=== PATIENT | female | born 1955 | race Caucasian/White ===

== ENCOUNTER → 2017-10-24 | Outpatient (CLI) | payer BC ==
[~2017-10-24] MED LIST: BUDE10.2 IH; DOCU100C37 PO; IBUP-1780 PO; OXYC-471 PO; RT-ALBUINH IH
--- NOTE | 2017-10-24 16:30 | Diagnostic Imaging Report ---
EXAMINATION: PA and lateral chest at 2:41 p.m. INDICATION: COPD, preop hysterectomy. COMPARISON: There are no prior studies available for comparison. FINDINGS: The heart size is within normal limits. There is a band of increased density near the apex of the heart. I suspect this finding is secondary to scar formation as opposed to pneumonia/atelectasis. If previous exams are available, they would be helpful for comparison. The lungs are generally clear otherwise. There is no sign of failure, pneumonia, or pleural effusion to indicate an acute abnormality. The mediastinum is not widened. The osseous structures are intact. IMPRESSION: 1. The poorly defined band of increased density near the apex of the heart is more likely due to scar formation than to an acute abnormality. Clinical followup is recommended. If previous studies are available, they would be helpful for comparison. 2. There is no acute cardiopulmonary abnormality noted. Dictated by: Dictated on workstation # [id number]
== END ==
LOC: RAD 14:09
PROVIDERS: ATTEND Nurse Practitioner Family
DX: Z01.811 Encounter for preprocedural respiratory examination (principal); J44.9 Chronic obstructive pulmonary disease, unspecified
CPT/HCPCS: 71046

== ENCOUNTER 2017-11-08 12:00 | Outpatient (CLI) | payer BC ==
[~2017-11-08] VITALS: Ht 170.2 cm; Wt 86.3 kg
[2017-11-08] MEDS ORDERED: RT-ALBUINH IH (12:11)
[2017-11-08] MEDS ORDERED: BUDE10.2 IH (12:11)
[2017-11-08 12:24] VITALS: BP 118/72
[2017-11-08 13:01] LABS: BASOPHILS # (AUTO) 0.1 10^3/uL (0.0-0.1); BASOPHILS % (AUTO) 1 % (0-10); EOSINOPHILS # (AUTO) 0.5 10^3/uL (0.0-0.3); EOSINOPHILS % (AUTO) 6 % (0-10); HEMATOCRIT 40 % (35-52); LYMPHOCYTES # (AUTO) 1.8 X 10^3 (1.0-4.0); LYMPHOCYTES % (AUTO) 22 % (12-44); MEAN CORPUSCULAR HEMOGLOBIN 30 PG (25-34); MEAN CORPUSCULAR HGB CONC 33 G/DL (32-36); MEAN CORPUSCULAR VOLUME 90 FL (80-99); MEAN PLATELET VOLUME 9.8 FL (7.4-10.4); MONOCYTES # (AUTO) 0.9 X 10^3 (0.0-1.0); MONOCYTES % (AUTO) 11 % (0-12); NEUTROPHILS % (AUTO) 60 % (42-75); PLATELET COUNT 394 10^3/uL (130-400); RED BLOOD COUNT 4.37 10^6/uL (4.35-5.85); RED CELL DISTRIBUTION WIDTH 14.6 % (10.0-14.5); WHITE BLOOD COUNT 8.3 10^3/uL (4.3-11.0)
== END 2017-11-08 13:10 | disposition home or self-care (01) ==
LOC: EDBD → PREOP 12:00
PROVIDERS: ATTEND Obstetrics & Gynecology
DX: Z01.812 Encounter for preprocedural laboratory examination (principal); Z11.2 Encounter for screening for other bacterial diseases; R32 Unspecified urinary incontinence
CPT/HCPCS: 36415; 85025; 86850; 86900; 86901; 87081

== ENCOUNTER → 2017-11-08 | Outpatient (CLI) | payer BC ==
[~2017-11-08] MED LIST changes: +RT-ALBUTEROL SULF 2.5 MG/3 ML PRE-MIX VIAL INH ONE; +RT-ALBUTEROL SULF 2.5 MG/3 ML PRE-MIX VIAL ONE
== END ==
LOC: EDBD 11-01 13:00 → RT 11:45
PROVIDERS: ATTEND Nurse Practitioner Family
DX: J44.9 Chronic obstructive pulmonary disease, unspecified (principal)
CPT/HCPCS: 94060; 94726; 94729

== ENCOUNTER 2017-11-17 10:10 | Day surgery (SDC) | payer BC ==
[~2017-11-17] VITALS: Ht 170.2 cm; Wt 86.3 kg
[~2017-11-17 10:10] MED LIST changes: -DOCU100C37 PO; -IBUP-1780 PO; -OXYC-471 PO; -RT-ALBUTEROL SULF 2.5 MG/3 ML PRE-MIX VIAL INH ONE; -RT-ALBUTEROL SULF 2.5 MG/3 ML PRE-MIX VIAL ONE
[2017-11-17 10:25] VITALS: BP 127/81
[2017-11-17] MEDS ORDERED: ceFAZolin INJECTION 1,000 MG in NS (IVPB) 50 ML IV ONE (10:30)
[2017-11-17] MEDS ORDERED: BUP/EPI 0.5% 1:200,000 (SENSORCAINE) 30 ML VIAL ONE (10:35)
[2017-11-17] MEDS ORDERED: ESTRADIOL VAGINAL CREAM 42.5 GM (ESTRACE) VG ONE (10:35)
[2017-11-17] MEDS: LACTATED RINGERS 1,000 ML IV PRN ×2 (11:40→15:54)
[2017-11-17] MEDS ORDERED: fentaNYL INJECTION 100 MCG/2 ML AMP ONE ×2 (12:35→15:06)
[2017-11-17] MEDS ORDERED: LIDOCAINE PF 2% 5 ML (XYLOCAINE) VIAL ONE (12:35)
[2017-11-17] MEDS ORDERED: MIDAZOLAM 2 MG/2 ML (VERSED) VIAL ONE (12:35)
[2017-11-17] MEDS ORDERED: ONDANSETRON 4 MG/2 ML (SDV) Z0FRAN ONE (12:35)
[2017-11-17] MEDS ORDERED: proPOfol 200 MG/20 ML (DIPRIVAN) VIAL IV ONE (12:35)
[2017-11-17] MEDS ORDERED: DEXAMETHASONE 10 MG/ML (DECADRON) 1 ML VIAL ONE (12:35)
[2017-11-17] MEDS ORDERED: ROCURONIUM 10 MG/ML 5 ML SYRINGE IV ONE ×2 (12:35→13:55)
--- NOTE | 2017-11-17 13:03 | Progress Note-Post Operative ---
Post-Operative Progess Note Surgeon (s)/Manager Collection (s) Surgeon QUIN DENIS MD Manager Collection: Franca Cunha Pre-Operative Diagnosis Uterovaginal prolapse and stress urinary incontinence Post-Operative Diagnosis Same with pathology pending Procedure & Operative Findings Date of Procedure 11/17/17 Procedure Performed/Findings TLH / BSO/anterior and posterior vaginal repairs with enterocele repair, laparoscopic adhesiolysis, (and pubovaginal sling and cystoscopy per Dr. Cross) Anesthesia Type GETA Estimated Blood Loss Estimated blood loss (mL): 200cc Specimens/Packing Specimens Removed Uterus fallopian tubes and ovaries Packing: Kerlix in the vagina QUIN DENIS MD Nov 17, 2017 13:03
--- NOTE | 2017-11-17 13:03 | Progress Note-Pre Operative ---
Pre-Operative Progress Note H&P Reviewed The H&P was reviewed, patient examined and no changes noted. Date Seen by Provider: Nov 17, 2017 Time Seen by Provider: 13:02 Date H&P Reviewed: Nov 17, 2017 Time H&P Reviewed: 13:02 Pre-Operative Diagnosis: Uterovaginal prolapse and stress urinary incontinence QUIN DENIS MD Nov 17, 2017 1:02 pm
[2017-11-17] MEDS ORDERED: IBUP-1780 PO (13:08)
[2017-11-17] MEDS ORDERED: OXYC-471 PO (13:08)
[2017-11-17] MEDS ORDERED: DOCU100C37 PO (13:08)
--- NOTE | 2017-11-17 13:09 | Discharge Instructions ---
Discharge Instructions Discharge Medications New, Converted or Re-Newed RX: RX on Chart Patient Instructions Patient Instructions: as directed Return to The Hospital For: As directed Activity & Diet Discharge Diet: No Restrictions Activity as Tolerated: No Orders-Post D/C & Referrals Follow Up Appt: Return to clinic on Monday, November 20, 2017 for staple removal Call to make follow up appt. for patient in 4 weeks. Activity: Rest for 24 hours, than as tolerated. Wound Care: May remove Band-Aid tomorrow. Replace as desired. Keep incisions clean and dry. Wash daily with soap and water. Please call in RX to patient pharmacy. Diet: As tolerated-Clear Liquids only if nauseated. May shower or tub bathe as desired. No driving for 24 hours, no alcoholic beverages for 24 hours, and nothing per vagina (no tampons, douching, or intercourse) for 8 weeks. Patient to return to the clinic as soon as possible for: Temperature greater than 101F, Severe Pain, Foul discharge from incision or vagina, Excessive Bleeding (more than a period). QUIN DENIS MD Nov 17, 2017 1:09 pm
[2017-11-17] MEDS ORDERED: KETOROLAC 30 MG/ML VIAL IVP SCH (13:15)
[2017-11-17] MEDS ORDERED: ONDANSETRON 4 MG/2 ML (SDV) Z0FRAN IVP PRN ×2 (13:15→15:45)
[2017-11-17] MEDS ORDERED: oxyCODONE/APAP 5/325MG (PERCOCET 5) TABLET PO PRN (13:15)
[2017-11-17] MEDS ORDERED: WATER (STERILE) FOR INJ 10 ML BTL INJ ONE (13:15)
[2017-11-17] MEDS ORDERED: ESTROGENS CONJ IV 25 MG/5 ML (PREMARIN) VIAL IVP ONE (13:15)
[2017-11-17] MEDS ORDERED: BENZOCAINE/MENTHOL (DERMOPLAST) 56 ML CAN TP PRN (13:15)
[2017-11-17] MEDS ORDERED: PROMETHAZINE INJ 25 MG/ML (PHENERGAN) AMP IM PRN (13:15)
[2017-11-17] MEDS ORDERED: MEPERIDINE (DEMEROL) INJ 100 MG/ML IM PRN (13:15)
[2017-11-17] MEDS ORDERED: PATIENT MAY USE OWN MEDS, ALL MC SCH (13:15)
[2017-11-17] MEDS ORDERED: SEVOFLURANE (ULTANE) 15 ML INHAL SOLN ONE ×3 (14:02→15:35)
[2017-11-17] MEDS ORDERED: KETOROLAC 30 MG/ML VIAL ONE (15:05)
--- NOTE | 2017-11-17 15:11 | Progress Note-Post Operative ---
Post-Operative Progess Note Surgeon (s)/Building Illuminating Engineer (s) Surgeon JOSELITO LAM MD Building Illuminating Engineer: ADEEL Pre-Operative Diagnosis MIXED INCONTINENCE, ISD, OAB, AND PROLAPSE Post-Operative Diagnosis SAME Procedure & Operative Findings Date of Procedure 11/17/17 Procedure Performed/Findings PVS AND CYSTOSCOPY Anesthesia Type GENERAL Estimated Blood Loss Estimated blood loss (mL): NEGLIGIBLE Specimens/Packing Specimens Removed N/A Packing: KERLIX VAGINAL PACK JSOELITO LAM MD Nov 17, 2017 3:11 pm
[2017-11-17] MEDS ORDERED: morphine INJ 10 MG/ML 1ML (SYR OR VIAL) ONE (15:34)
[2017-11-17] MEDS ORDERED: NEOSTIGMINE 1 MG/ML 5 ML SYRINGE ONE (15:35)
[2017-11-17] MEDS ORDERED: GLYCOPYRROLATE 0.2 MG/ML (ROBINUL) 2 ML VIAL ONE (15:35)
[2017-11-17] MEDS ORDERED: MEPERIDINE (DEMEROL) INJ 50 MG/ML IVP PRN (15:45)
[2017-11-17] MEDS ORDERED: HYDROmorphone 1 MG/ML (DILAUDID) 1 ML SYRINGE IV PRN (15:45)
[2017-11-17] MEDS: morphine INJ 10 MG/ML 1ML (SYR OR VIAL) IVP PRN ×2 (15:52→15:59)
[2017-11-17 16:30] VITALS: BP_SYST 127; BP_DIAS 68; BP_DIAS 81
[2017-11-17 20:15] VITALS: BP 124/68
--- NOTE | 2017-11-17 21:18 | OPERATIVE REPORT ---
DATE OF SERVICE: 11/17/2017 PREOPERATIVE DIAGNOSES: Mixed urinary incontinence with overactive bladder and ISD. POSTOPERATIVE DIAGNOSES: Mixed urinary incontinence with overactive bladder and ISD. OPERATION PERFORMED: Pubovaginal sling and cystoscopy. SURGEON: Dr. Lam. FUNERAL SERVICE MANAGER: Cody Wilhelm MD ANESTHESIA: General. COMPLICATIONS: None. DESCRIPTION OF PROCEDURE: After Dr. Wilhelm performed the first part of his surgery that he will dictate, I inserted a Adhikari catheter draining clear urine. I passed the Solyx pubovaginal sling device on both sides using the described technique. The sling was sitting nicely under the mid urethra with no tension and no twist. I removed the catheter to perform cystoscopy to confirm the integrity of the bladder, urethra and ureteral orifices with no foreign body or tumor and presence of the sling under the mid urethra. I left fluid in the bladder to perform a manual Valsalva maneuver that was very mild negative. I left it, so I did not want to titrate it further to allow the weight of the patient to come down otherwise cause retention. The patient also has overactive bladder with incontinence that we can handle with anticholinergic later on. This was explained to the patient preoperatively. The catheter was reinserted, draining clear urine. Estimated blood loss for my part was negligible and Dr. Wilhelm proceeded with the rest of his surgery that he will dictate. Job ID: [id number] DocumentID: [id number] Dictated Date: 11/17/2017 15:13:44 Log Manager Date: 11/17/2017 21:18:15 Dictated By: JOSELITO LAM MD
[2017-11-17] MEDS: D5 LR IV SOLUTION 1,000 ML IV SCH ×2 (21:29→21:30)
[2017-11-17] MEDS: KETOROLAC 30 MG/ML VIAL IVP SCH (21:30)
--- NOTE | 2017-11-17 21:33 | OPERATIVE REPORT ---
DATE OF SERVICE: 11/17/2017 PREOPERATIVE DIAGNOSES: Uterovaginal prolapse and stress urinary incontinence. POSTOPERATIVE DIAGNOSES: Uterovaginal prolapse and stress urinary incontinence. OPERATIVE PROCEDURES: Total laparoscopic hysterectomy with bilateral salpingo-oophorectomy followed by anterior, posterior vaginal repairs and with Dr. Sanchez performing a pubovaginal sling and cystoscopy. OPERATIVE DESCRIPTION: With the patient in the supine position under satisfactory general anesthesia, she was repositioned in dorsal lithotomy position in the [facility], then prepped and draped in the usual fashion for abdominal and vaginal surgery. Adhikari catheter was placed in the urinary bladder and left to dependent drainage. Weighted speculum placed in posterior fornix of vagina, cervix exposed and grasped anteriorly with single tooth tenaculum. Uterus was sounded to 7 cm with the uterine sound. The cervix was then serially dilated with Jesse dilators to accommodate a Samantha II manipulator, which was placed using a 6 mm x 8 cm uterine probe and a 25 mm colpotomy ring. Sutures of #1 Vicryl placed at 3 and 9 o'clock position of the cervix to affix the uterine cervix to the manipulator. The patient was now brought in low dorsal lithotomy position. The tenaculum and speculum were removed from the vagina. A 12 mm incision was made 3 cm superior to the umbilicus, 8 mm incisions were made 9 cm lateral to the umbilicus. All the incision sites were infiltrated with 0.25% Marcaine with epinephrine prior to incision. Veress needle was placed through the midline incision, correct placement confirmed with the water drop test. The abdomen was insufflated with 2.4 liters of carbon dioxide. Then, the Veress needle was removed and a 12 mm Optiview laparoscopic port was placed. The abdominal wall was transilluminated with the laparoscope and 8 mm ports were placed through the incisions laterally under direct vision. The patient placed into Trendelenburg allowing the bowel to spill out of the pelvis. There were some fairly notable adhesions to the left pelvic brim obscuring access to the left IP ligament and to the left pelvis. The uterus was visible when elevated with the manipulator. The da Bib column was advanced on the patient and docked and operative instruments were placed in the right and left lateral ports and then I retired to the da Bib console. Using a monopolar shear on the right and a bipolar fenestrated grasper on the left, the pelvis was first examined in order to assess the pelvis. The adhesions were taken down carefully and meticulously lysed and the adhesions of the rectosigmoid and of the sigmoid mesentery that were adherent to the left pelvic brim and the terminus of left pericolic gutter. With those adhesions free, the IP ligament was skeletonized. The retroperitoneum was developed on the left allowing access to exposure to the ureter, which was seen to peristalse deep in the pelvis. The laparoscope was rotated. The right ovary was also somewhat adherent above the pelvic brim. These adhesions were taken down to free the exposure to the IP ligament to free the ovary. The right ureter was seen to peristalse well down in the pelvis as well. The vessel sealer was now placed in the right lateral port in place of the monopolar shear. The right tube and ovary were grasped and elevated. The vessel sealer was used to clamp, cauterize and divide the IP ligament and then the mesovarium and then the round ligament, the broad ligament and finally the cardinal ligament. Same procedure was performed on the left allowing for removal of both tubes and ovaries eventually with the uterus. The anterior lower uterine segment peritoneum was divided by using the monopolar attiana now in place with a vessel sealer. The bladder was carefully dissected down off the lower uterine segment and then colpotomy incision was started at 12 o'clock position and continued circumferentially until the entire colpotomy ring was exposed. The uterus with tubes and ovaries still attached was extracted through the vagina. The vaginal cuff was then closed with a single suture of V-Loc barbed suture starting from the right angle including the uterine vessels in the initial stitches and then a stepwise in a running fashion across the vaginal cuff and then the left angle of the vaginal cuff was secured including the pedicle of the uterine vessels on the left as well. The pelvis was examined. Hemostasis was complete. There was a small amount of blood in the cul-de-sac that was left in situ for her body to reabsorb. The laparoscopic portion of the procedure at this point was terminated. The operative instruments removed under direct vision as were the ports. The patient brought out of Trendelenburg. The abdomen was evacuated and insufflating gas in the process of removing the ports. The skin incisions were stapled after closing the fascia at the supraumbilical incision with a [id number] suture of 2-0 Vicryl. The patient was now repositioned into the dorsal lithotomy position. Weighted speculum placed in the posterior fornix of the vagina. The anterior vaginal wall was grasped with two Marcio clamps and an incision made in the midline with Metzenbaum scissors. That incision was continued to the apex of the vagina and to approximately a 1 cm to 1.5 cm from the urethral meatus. The vesicovaginal space was entered and dissected sharply and bluntly and then the endopelvic fascia and bladder wall were plicated with 2-0 Vicryl sutures elevating the bladder back up into the pelvis and have an effective lengthening the urethra. Dr. Sanchez assumed care of the patient at this point, I remained to assist. Dr. Sanchez performed his pubovaginal sling and cystoscopy without event. He will dictate those portions of the procedure. Upon completion of Dr. Sanchez's portion of the procedure, he left the Adhikari catheter to dependent drainage. Inspection of bladder was still draining clear yellow urine and he did visualize both efflux from the ureters on both sides. The redundant anterior vaginal wall muscularis mucosa was now removed sharply as I resumed care of the patient. The anterior vaginal wall was closed with a running lock suture of 3-0 Vicryl Rapide. Good support was evident. Good reapproximation was achieved and good hemostasis was evident. The posterior repair was then affected by placing Marcio clamps on the perineum and hymenal ring at 5 and 7 o'clock position and inverted triangle of skin was removed from the perineal body and upright triangle from the posterior vaginal floor. The rectovaginal space was entered sharply and dissected bluntly to the apex of the vagina. Rosalba retractor was placed anteriorly and then sutures of 2-0 Vicryl Rapide were placed with placing first a pursestring suture to obliterate a small enterocele that was discovered at the apex of the rectovaginal space. With that done, the rectovaginal space itself was obliterated with additional sutures of 2-0 Vicryl. The perineal body was restored with sutures of 2-0 Vicryl and then redundant posterior vaginal muscularis mucosa was removed sharply. Vaginal was closed with a running locked suture of 3-0 Vicryl Rapide. The closure was continued down the vaginal wall to the hymenal ring and then past the hymenal ring down on the perineal body and then back up subcutaneous to the perineal body to the introitus where the suture was tied. Good support was achieved. Good reapproximation was achieved and good hemostasis was achieved. The vagina was examined for hemostasis. That being complete, the vagina was filled with Estrace vaginal cream and a pack of Kerlix gauze was placed. Digital rectal exam confirmed no stricture or stenosis of the rectum and no sutures into or through the rectal mucosa. Sponge and needle counts were correct at this point. Estimated blood loss was around 200 to 250 mL. The patient tolerated the procedure well and was uneventfully awakened from her general anesthesia and transferred to the recovery room in stable condition. Job ID: [id number] DocumentID: [id number] Dictated Date: 11/17/2017 15:30:10 Collector Of Internal Revenue Date: 11/17/2017 21:32:26 Dictated By: QUIN DENIS MD
[2017-11-17 23:55] VITALS: BP 110/64
[2017-11-18] MEDS: KETOROLAC 30 MG/ML VIAL IVP SCH ×2 (03:34→08:31)
[2017-11-18 03:35] VITALS: BP 124/69
[2017-11-18] MEDS: D5 LR IV SOLUTION 1,000 ML IV SCH (05:23)
--- NOTE | 2017-11-18 07:11 | Progress Note-Standard ---
Standard Progress Note Progress Notes/Assess & Plan Date Seen by Provider: Nov 18, 2017 Time Seen by Provider: 07:10 Progress/Assessment & Plan This patient is without complaint. She is ablating, tolerating oral intake well has good pain control. Patient denies chest pain, denies shortness breath , denies nausea vomiting, denies headache. Bladder trial is ongoing. Vital signs are stable. Patient is afebrile. Vital Signs 11/18/17 03:35 Temp 98.8 Pulse 86 Resp 18 B/P (MAP) 124/69 (87) Pulse Ox 94 O2 Delivery Room Air The abdomen is benign Extreme show clubbing or cyanosis is no Homans sign. Assessment and plan postoperative day number 1 doing well. Plan is for routine convalescence care today and discharge home when patient demonstrates adequate bladder function QUIN DENIS MD Nov 18, 2017 7:11 am
[2017-11-18 08:00] VITALS: BP 132/70
--- NOTE | 2017-11-18 08:21 | Anesthesia-General Post-Op ---
General Patient Condition Mental Status/LOC: Same as Preop Cardiovascular: Satisfactory Nausea/Vomiting: Absent Respiratory: Satisfactory Pain: Controlled Complications: Absent Post Op Complications Complications None Follow Up Care/Instructions Patient Instructions None needed. Anesthesia/Patient Condition Patient Condition Patient is doing well, no complaints, stable vital signs, no apparent adverse anesthesia problems. No complications reported per nursing. [place] [facility] [place] Yes SANDRA SCHMITT CRNA Nov 18, 2017 08:21
[2017-11-18] MEDS ORDERED: DOCUSATE SODIUM 100 MG (COLACE) CAP PO SCH (09:00)
--- NOTE | 2017-11-18 10:34 | Progress Note-Urology ---
Progress Note-Urology Progress Notes/Assess & Plan Progress/Assessment & Plan RECOVERED WELL. NO COMPLAINTS. VOIDED ON OWN 3 TIMES. FEELS EMPTY. DRY NO LEAK. PVR SCAN 11C. JOSELITO LAM MD Nov 18, 2017 10:34
[2017-11-18] MEDS ORDERED: IBUPROFEN 800 MG (MOTRIN) TAB PO SCH (15:00)
== END 2017-11-18 11:55 | disposition home or self-care (01) ==
LOC: EDBD → SDC 10:10 → LDRP 17:10 → SDC 11-18 11:55
PROVIDERS: ATTEND Obstetrics & Gynecology
DX: N81.2 Incomplete uterovaginal prolapse (principal); N80.0 Endometriosis of uterus; N83.8 Other noninflammatory disorders of ovary, fallopian tube and broad ligament; N36.42 Intrinsic sphincter deficiency (ISD); N39.46 Mixed incontinence; N32.81 Overactive bladder; J44.9 Chronic obstructive pulmonary disease, unspecified; K21.9 Gastro-esophageal reflux disease without esophagitis; F17.210 Nicotine dependence, cigarettes, uncomplicated
CPT/HCPCS: 86850; 86900; 86901; 94664